=== PATIENT | female | born 2005 | race Asian ===

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

== ENCOUNTER 2023-08-29 20:17 | Inpatient (IN) | payer MEDICAID, OTHER ==
[~2023-08-29] VITALS: Ht 162.6 cm; Wt 66.6 kg
[~2023-08-29 20:17] MED LIST: LURA40TA2 PO
[2023-08-29 21:12] LABS: BASOPHILS % (AUTO) 0.6 % (0.0-2.0); HEMATOCRIT 34.8 % (36-46); HEMOGLOBIN 11.4 g/dL (12.0-16.0); LYMPHOCYTES # (AUTO) 2.6 K/uL (1.0-4.8); LYMPHOCYTES % (AUTO) 27.9 % (22.0-44.0); MEAN CORPUSCULAR HEMOGLOBIN 27.3 pg (26.0-34.0); MEAN CORPUSCULAR HGB CONC 32.8 G/dL (31.0-37.0); MEAN CORPUSCULAR VOLUME 83 fL (80-100); MONOCYTES # (AUTO) 0.6 K/uL (0.1-1.0); MONOCYTES % (AUTO) 6.5 % (2.0-9.0); NEUTROPHILS # (AUTO) 5.9 K/uL (1.8-7.7); PLATELET COUNT (AUTO) 312 K/uL (150-450); RED BLOOD CELL COUNT(AUTO) 4.18 MIL/uL (4.00-5.20); RED CELL DISTRIBUTION WIDTH 13.2 % (11.5-14.5); WHITE BLOOD COUNT (AUTO) 9.3 K/uL (4.5-11.0)
[2023-08-29 21:26] LABS: ALCOHOL, BLOOD (SERUM) < 3 mg/dL (0-10)
[2023-08-29 21:28] LABS: ACETAMINOPHEN 11 mcg/mL (10-30); ALANINE AMINOTRANSFERASE 25 U/L (12-78); ALBUMIN 3.1 g/dL (3.4-5.0); ALKALINE PHOSPHATASE 84 U/L (46-116); ANION GAP 8 mmol/L (8-16); ASPARTATE AMINOTRANSFERASE 10 U/L (15-37); CALCIUM, TOTAL 9.1 mg/dL (8.8-10.5); CARBON DIOXIDE 28 mmol/L (22-29); CHLORIDE 103 mmol/L (98-107); CREATININE 0.92 mg/dL (0.60-1.30); GLOMERULAR FILTR. RATE CALC > 60 mL/min (>60); GLUCOSE,RANDOM 131 mg/dL (70-110); SODIUM SERUM 139 mmol/L (136-145); TOTAL PROTEIN, SERUM 6.7 g/dL (6.4-8.2); UREA NITROGEN, BLOOD 8 mg/dL (7-18)
[2023-08-29 21:33] LABS: POTASSIUM 2.9 mmol/L (3.5-5.1); SALICYLATE < 2.8 mg/dL (2.8-20.0)
[2023-08-29 21:41] LABS: BILIRUBIN,TOTAL 0.1 mg/dL (0.1-1.0)
[2023-08-29] MEDS ORDERED: SODIUM CHLORIDE 0.9% 1,000 ML IV ONE (22:30)
[2023-08-29] MEDS ORDERED: LIDOCAINE 1% 10 ML VIAL SQ ONE (22:45)
[2023-08-29 23:00] LABS: COVID AG,FIA SOURCE NASAL SWAB
[2023-08-29 23:18] LABS: SARS-COV2 (COVID) ANTIGEN,FIA Negative (Negative)
[2023-08-29] MEDS ORDERED: PERTUSS(ACELL),DIPH,TET VAC/PF 0.5 ML SYRINGE IM. ONE (23:30)
[2023-08-29] MEDS ORDERED: ZOLPIDEM TARTRATE 10 MG TABLET PO PRN (23:30)
[2023-08-29] MEDS ORDERED: LORazepam 2 MG TABLET PO PRN (23:30)
[2023-08-29] MEDS ORDERED: HALOPERIDOL 5 MG TABLET PO PRN (23:30)
[2023-08-30] MEDS ORDERED: POTASSIUM CHLORIDE 20 MEQ ER TABLET PO ONE ×2 (01:30→09:00)
[2023-08-30 01:57] LABS: ANION GAP 9 mmol/L (8-16); CALCIUM, TOTAL 9.1 mg/dL (8.8-10.5); CARBON DIOXIDE 27 mmol/L (22-29); CHLORIDE 103 mmol/L (98-107); CREATININE 0.74 mg/dL (0.60-1.30); GLOMERULAR FILTR. RATE CALC > 60 mL/min (>60); GLUCOSE,RANDOM 93 mg/dL (70-110); POTASSIUM 3.1 mmol/L (3.5-5.1); SODIUM SERUM 139 mmol/L (136-145); UREA NITROGEN, BLOOD 6 mg/dL (7-18)
[2023-08-30 02:05] LABS: ALANINE AMINOTRANSFERASE 25 U/L (12-78); ALBUMIN 3.2 g/dL (3.4-5.0); ALKALINE PHOSPHATASE 90 U/L (46-116); ASPARTATE AMINOTRANSFERASE 12 U/L (15-37)
[2023-08-30 02:09] LABS: ACETAMINOPHEN < 2 mcg/mL (10-30); BILIRUBIN,TOTAL 0.1 mg/dL (0.1-1.0)
[2023-08-30] MEDS ORDERED: BACITRACIN 0.9 GM PACKET OINTMENT TP ONE (02:15)
[2023-08-30 08:17] VITALS: BP 105/64; PULSE 80; RESP 17; TEMP 97.3; O2SAT 99
[2023-08-30] MEDS ORDERED: MAG HYDROX/ALUMINUM HYD/SIMETH ES 30 ML SUSPENSION UDCUP PO PRN (09:45)
[2023-08-30] MEDS ORDERED: CloNIDine HCL 0.1 MG TABLET PO PRN (09:45)
[2023-08-30] MEDS ORDERED: IBUPROFEN 400 MG TABLET PO PRN (09:45)
[2023-08-30] MEDS ORDERED: ACETAMINOPHEN 325 MG TABLET PO PRN (09:45)
[2023-08-30] MEDS ORDERED: PETROLATUM,WHITE 28 GM JELLY TP PRN (09:45)
[2023-08-30] MEDS ORDERED: MAGNESIUM HYDROXIDE SUSPENSION 30 ML UDCUP PO PRN (09:45)
[2023-08-30] MEDS ORDERED: ONDANSETRON HCL 4 MG TABLET PO PRN (09:45)
[2023-08-30] MEDS ORDERED: ALBUTEROL SULFATE HFA 90 MCG/PUFF 8 GM INHALER IH PRN (09:45)
[2023-08-30] MEDS ORDERED: GuaiFENesin/D-METHORPHAN [SUGAR-FREE] 200-20MG/10 ML SYRUP UDCUP PO PRN (09:45)
[2023-08-30] MEDS ORDERED: LOPERAMIDE HCL 2 MG CAPSULE PO PRN (09:45)
[2023-08-30] MEDS ORDERED: NICOTINE 14 MG/24 HOUR PATCH TD PRN (09:45)
[2023-08-30] MEDS ORDERED: DOCUSATE SODIUM 100 MG CAPSULE PO PRN (09:45)
[2023-08-30] MEDS: LITHIUM CARBONATE 300 MG CAPSULE PO SCH ×2 (11:03→16:26)
[2023-08-30] MEDS: FLUoxetine HCL 20 MG CAPSULE PO SCH (11:03)
[2023-08-30] MEDS: ARIPiprazole 10 MG TABLET PO SCH (11:03)
[2023-08-30 21:08] VITALS: BP 117/67; PULSE 102; RESP 17; TEMP 98.1; O2SAT 97
[2023-08-31 08:22] VITALS: BP 114/69; PULSE 92; RESP 18; TEMP 97.5; O2SAT 98
[2023-08-31] MEDS: FLUoxetine HCL 20 MG CAPSULE PO SCH (09:00)
[2023-08-31] MEDS: ARIPiprazole 10 MG TABLET PO SCH (09:01)
[2023-08-31] MEDS: LITHIUM CARBONATE 300 MG CAPSULE PO SCH ×2 (09:01→16:25)
[2023-08-31 09:45] LABS: CHOL/HDL RATIO 4.3 (3.9-5.7); POTASSIUM 3.6 mmol/L (3.5-5.1); THYROID STIMULATING HORMONE 0.47 uIU/mL (0.36-3.74)
[2023-08-31 10:00] LABS: HEMOGLOBIN A1C 5.3 % (3.8-5.6)
[2023-08-31] MEDS ORDERED: FLUO20CA36 PO (13:46)
[2023-08-31] MEDS ORDERED: ARIP10TA38 PO (13:46)
[2023-08-31] MEDS ORDERED: LITH300C3 PO (13:46)
[2023-08-31 20:54] VITALS: BP 107/66; PULSE 96; RESP 18; TEMP 97.9; O2SAT 99
[2023-09-01 08:25] VITALS: BP 122/63; PULSE 91; RESP 18; TEMP 97.7; O2SAT 100
[2023-09-01] MEDS: ARIPiprazole 10 MG TABLET PO SCH (08:59)
[2023-09-01] MEDS: LITHIUM CARBONATE 300 MG CAPSULE PO SCH (08:59)
[2023-09-01] MEDS: FLUoxetine HCL 20 MG CAPSULE PO SCH (09:00)
[2023-09-01 09:37] LABS: APPEARANCE,URINE HAZY (CLEAR); BILIRUBIN,URINE NEGATIVE (NEGATIVE); COLOR,URINE LIGHT YELLOW (YELLOW); GLUCOSE, URINE (UA) NEGATIVE (NEGATIVE); KETONES,URINE NEGATIVE (NEGATIVE); LEUKOCYTE ESTERASE ,URINE LARGE (NEGATIVE); NITRATE,URINE NEGATIVE (NEGATIVE); OCCULT BLOOD,URINE NEGATIVE (NEGATIVE); PROTEIN,URINE NEGATIVE (NEGATIVE); SPECIFIC GRAVITIY, URINE 1.011 (1.003-1.030); UROBILINOGEN,URINE <=1.0 mg/dL (<=1.0)
[2023-09-01 09:49] LABS: ALCOHOL, URINE DRUG SCREEN NEGATIVE (NEGATIVE); AMPHET/METH SCREEN,URINE POSITIVE (NEGATIVE); BARBITURATE SCREEN, URINE NEGATIVE (NEGATIVE); BENZODIAZEPINES SCREEN,URINE NEGATIVE (NEGATIVE); CANNABINOID SCREEN,URINE NEGATIVE (NEGATIVE); COCAINE SCREEN,URINE NEGATIVE (NEGATIVE); METHADONE SCREEN, URINE NEGATIVE (NEGATIVE); OPIATE SCREEN,URINE NEGATIVE (NEGATIVE); PHENCYCLIDINE SCREEN,URINE NEGATIVE (NEGATIVE)
[2023-09-01 10:07] LABS: SQUAMOUS EPITHELIAL CELL,UR Many /LPF (None Seen)
[2023-09-01 10:08] LABS: BACTERIA,URINE Many /HPF (None Seen); RBC,URINE None Seen /HPF (0-2)
[2023-09-01 10:10] LABS: CALCIUM OXALATE CRYSTALS,UR Rare /LPF (None Seen)
== END 2023-09-01 11:20 | disposition home or self-care (01) | DRG 753 ==
LOC: EMS 20:18 → B2S 08-30 02:00
PROVIDERS: ADMIT Psychiatry & Neurology Child & Adolescent Psychiatry; ATTEND Psychiatry & Neurology Child & Adolescent Psychiatry
PROC: 0HQDXZZ Repair Right Lower Arm Skin, External Approach (ICD-10-PCS; principal; 2023-08-30)
DX: F31.4 Bipolar disorder, current episode depressed, severe, without psychotic features (principal); D64.9 Anemia, unspecified; E87.6 Hypokalemia; E78.5 Hyperlipidemia, unspecified; S51.011A Laceration without foreign body of right elbow, initial encounter; T50.902A Poisoning by unspecified drugs, medicaments and biological substances, intentional self-harm, initial encounter; N39.0 Urinary tract infection, site not specified; F15.10 Other stimulant abuse, uncomplicated; Z20.822 Contact with and (suspected) exposure to COVID-19; X58.XXXA Exposure to other specified factors, initial encounter; Z79.899 Other long term (current) drug therapy; Y92.89 Other specified places as the place of occurrence of the external cause; Z59.01 Sheltered homelessness; Y93.89 Activity, other specified; Y99.8 Other external cause status
CPT/HCPCS: 80053; 80061; 80178; 80307; 81001; 83036; 84132; 84443; 84703; 85025; 87086; 87186; 90715; 93005; 99285; G0480; G0481; J3490